=== PATIENT | female | born 1965 | race Caucasian/White ===

== ENCOUNTER 2020-11-29 09:24 | Outpatient (REF) | payer MEDICAID, SELFPAY ==
--- NOTE | ~2020-11-29 | XR_ITS ---
EXAMINATION: XR FOOT, RIGHT CLINICAL INFORMATION: Pain COMPARISON: None TECHNIQUE: AP, lateral, and oblique views of the right foot. FINDINGS: No fracture or dislocation is seen. 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 Joint spaces are otherwise normal. There are calcaneal spurs. Soft tissues are otherwise normal. 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 Calcaneal spurs.
== END 2020-11-29 09:25 | disposition home or self-care (01) ==
LOC: HO.LAB 09:24
PROVIDERS: PCP Student in an Organized Health Care Education/Training Program; Visit Provider General Practice
DX: M79.674 Pain in right toe(s) (principal); E11.9 Type 2 diabetes mellitus without complications; I10 Essential (primary) hypertension
CPT/HCPCS: 73630

== ENCOUNTER 2022-07-21 08:40 | Outpatient (REF) | payer MEDICAID, SELFPAY ==
--- NOTE | ~2022-07-21 | XR_ITS ---
EXAMINATION: XR KNEE, RIGHT CLINICAL INFORMATION: Pain COMPARISON: Right knee 07/04/2017 TECHNIQUE: Four views of the right knee. FINDINGS: There is mild suprapatellar joint effusion. Total right knee prosthesis in satisfactory alignment. No periprosthetic loosening. No fracture visualized. No lytic or sclerotic process. XR/XR knee RT 2V IMPRESSION: Moderate suprapatellar joint effusion. Total right knee arthroplasty in satisfactory alignment unchanged to previous exam 07/04/2017
== END 2022-07-21 08:41 | disposition home or self-care (01) ==
LOC: HO.XRAY 08:40
PROVIDERS: Visit Provider Student in an Organized Health Care Education/Training Program
DX: M25.561 Pain in right knee (principal)
CPT/HCPCS: 73560